=== PATIENT | male | born 1990 | race Caucasian/White ===

== ENCOUNTER 2018-07-01 23:21 | Emergency (ER) | payer OTHER ==
[~2018-07-01] VITALS: Ht 167.6 cm; Wt 72.7 kg
[2018-07-02 01:25] VITALS: BP 134/82
[2018-07-02] MEDS ORDERED: SULFAMETHOX/TRIMETH DS 800-160 MG/TABLET PO ONE (01:30)
[2018-07-02] MEDS ORDERED: BACITRACIN 0.9 GM PACKET OINTMENT TP ONE (01:30)
[2018-07-02] MEDS ORDERED: CEPHALEXIN MONOHYDRATE 500 MG CAPSULE PO ONE (01:30)
== END 2018-07-02 01:42 | disposition home or self-care (01) ==
LOC: EMS 23:21
DX: L03.031 Cellulitis of right toe (principal); L02.611 Cutaneous abscess of right foot; R23.8 Other skin changes; J45.909 Unspecified asthma, uncomplicated